=== PATIENT | male | born 1940 | race Caucasian/White ===

== ENCOUNTER 2016-10-13 09:57 | Emergency (ER) | payer MEDICARE, BC ==
[2016-10-13] MEDS ORDERED: NS 0.9% 1000 ML* 1,000 ML IV ONE (10:52)
[2016-10-13 11:00] LABS: Hematocrit 46 % (42-52); Hemoglobin 15.2 g/dl (14.0-18.0); Mean Corpuscular HGB Conc 33 g/dl (31-36); Mean Corpuscular Hemoglobin 30 pg (27-31); Mean Corpuscular Volume 91 fL (80-94); Mean Platelet Volume 9 um3 (7.4-10.4); Red Blood Count 5.01 10^6/ul (4.0-5.4); Red Cell Distribution Width 13 % (10.5-15); White Blood Count 20.1 10^3/ul (3.5-10.8)
[2016-10-13 11:12] LABS: Albumin 4.2 g/dL (3.2-5.2); BUN/Creatinine Ratio 18.6 (8-20); Calcium 9.3 mg/dL (8.6-10.3); EGFR African American 97.3 (>60); EGFR Non-African American 75.7 (>60); Globulin 3.1 g/dL (2-4); Potassium 3.6 mmol/L (3.5-5.0); Total Bilirubin 0.9 mg/dL (0.2-1.0); Total Protein 7.3 g/dL (6.4-8.9)
--- NOTE | 2016-10-13 11:23 | RAD ---
HISTORY: Trauma, headache and dizziness, confusion COMPARISONS: None TECHNIQUE: Multiple contiguous axial CT scans were obtained of the head without intravenous contrast. FINDINGS: HEMORRHAGE/INFARCT: There are bilateral frontal parenchymal parenchymal hematomas, left greater than right measuring approximate 4.8 x 2.6 cm transversely on the left and 2 x 2 cm transversely on the right. There is a contusion of the left cerebellar hemisphere measuring 2.5 cm. There is no acute infarct. MASSES/SHIFT: There is no shift. EXTRA-AXIAL SPACES: There is a small amount of subarachnoid hemorrhage along the anterior parietal lobes bilaterally. There is a small falcine subdural hematoma measuring 0.3 cm in thickness. SULCI AND VENTRICLES: The sulci and ventricles are normal in size and position for the patient's stated age. CEREBRUM: As noted above, there are bilateral frontal parenchymal hematoma with associated vasogenic edema. BRAINSTEM: There are no focal parenchymal abnormalities. CEREBELLUM: As noted above, there is a left cerebellar parenchymal hematoma. VESSELS: The vessels are grossly normal. PARANASAL SINUSES: The paranasal sinuses are clear. ORBITS: The orbits are unremarkable. BONES AND SOFT TISSUE: No bone or soft tissue abnormalities are noted. OTHER: None IMPRESSION: 1. LARGE BILATERAL FRONTAL PARENCHYMAL HEMATOMAS, LEFT GREATER THAN RIGHT, WITH A LEFT CEREBELLAR PARENCHYMAL HEMATOMA. THERE IS NO SHIFT. 2. THERE IS A SMALL AMOUNT OF SUBARACHNOID AND SUBDURAL HEMORRHAGE. 3. PRELIMINARY FINDINGS WERE DISCUSSED WITH DR. BURNETT IN THE EMERGENCY DEPARTMENT AT APPROXIMATELY 1117 A.M. ON OCTOBER 13, 2016.
[2016-10-13 11:37] VITALS: BP 150/63
--- NOTE | 2016-10-13 11:45 | ED ---
Orion Amato Benjamin, scribed for Fer Muñoz MD on 10/13/16 at 1057 . Dizziness - HPI Summary HPI Summary: 75yo male who had a mechanical fall yesterday afternoon from tripping off a car bumper. He denies head trauma. Per family, pt reported dizziness prior to the episode and had vomiting and bowel incontinence after the fall. Pt then vomited throughout the day multiple times, altogether about 15-20 times. Pt had 1 week- old roast beef yesterday prior to the episode. Per son, pt had a brief moment of confusion enroute to the hospital. - History Of Current Complaint Chief Complaint: EDDizziness Stated Complaint: DIZZY/LIGHTHEADED Time Seen by Provider: 10/13/16 10:38 Hx Obtained From: Patient Onset/Duration: Resolved Timing: Intermittent Episode Lasting Severity Initially: Mild Severity Currently: None Character: Dizzy Aggravating Factor(s): Nothing Alleviating Factor(s): Nothing Associated Signs And Symptoms: Positive: Vomiting - x15-20 - Allergies/Home Medications Allergies/Adverse Reactions: Allergies Allergy/AdvReac Type Severity Reaction Status Date / Time Proton Pump Inhibitors Allergy Unknown Verified 10/13/16 10:55 Reaction Details Sulfa Antibiotics Allergy Unknown Verified 10/13/16 10:55 Reaction Details Home Medications: Home Medications Amlodipine Besylate-Benazepril [Lotrel 5-10 mg] 5 - 10 mg PO BEDTIME 10/13/16 [ History Confirmed 10/13/16] Aspirin [Aspirin Enteric Coated Ad] 81 mg PO BEDTIME 10/13/16 [History Confirmed 10/13/16] Atorvastatin* [Lipitor 10 MG*] 10 mg PO BEDTIME 10/13/16 [History Confirmed 07/20] Finasteride TAB* [Proscar TAB*] 5 mg PO BEDTIME 10/13/16 [History Confirmed 07/20] Lactobacillus Acidophilu (GG)* [Culturelle*] 1 cap PO BEDTIME 10/13/16 [History Confirmed 10/13/16] Metoprolol Succinate [Toprol Xl] 25 mg PO BEDTIME 10/13/16 [History Confirmed ] Ranitidine HCl 150 mg PO BEDTIME 10/13/16 [History Confirmed 10/13/16] Sertraline* [Zoloft*] 25 mg PO BEDTIME 10/13/16 [History Confirmed 10/13/16] Tamsulosin CAP* [Flomax CAP*] 0.4 mg PO BEDTIME 10/13/16 [History Confirmed 07/20] PMH/Surg Hx/FS Hx/Imm Hx Previously Healthy: Yes Infectious Disease History: No Infectious Disease History: Denies: Traveled Outside the [place] in Last 30 Days - Social History Alcohol Use: None Substance Use Type: Reports: None Smoking Status (MU): Former Smoker Review of Systems Constitutional: Negative Eyes: Negative ENT: Negative Cardiovascular: Negative Respiratory: Negative Positive: Vomiting Genitourinary: Negative Musculoskeletal: Negative Skin: Negative Neurological: Other - dizziness Psychological: Normal All Other Systems Reviewed And Are Negative: Yes Physical Exam Triage Information Reviewed: Yes Vital Signs On Initial Exam: Initial Vitals Temp Pulse Resp BP Pulse Ox 98.4 F 98 16 158/84 100 10/13/16 10:18 10/13/16 10:18 10/13/16 10:18 10/13/16 10:18 10/13/16 10:18 Vital Signs Reviewed: Yes Appearance: Positive: Well-Appearing, No Pain Distress, Well-Nourished Skin: Positive: Warm, Skin Color Reflects Adequate Perfusion, Dry Head/Face: Positive: Normal Head/Face Inspection Eyes: Positive: Normal ENT: Positive: Normal ENT inspection Neck: Positive: Supple, Nontender Cardiovascular: Positive: RRR Abdomen Description: Positive: Nontender, Soft Bowel Sounds: Positive: Present Musculoskeletal: Positive: Normal Neurological: Positive: Sensory/Motor Intact, Alert, Oriented to Person Place, Time, CN Intact II-III, Other - Prefer eyes close but opens on command answers questions promptly. Slight dysmetria on the RUE Psychiatric: Positive: Affect/Mood Appropriate - [place] Coma Scale Coma Scale Total: 15 Diagnostics - Vital Signs Vital Signs Temp Pulse Resp BP Pulse Ox 10/13/16 10:18 98.4 F 98 16 158/84 100 - Laboratory Lab Results: Lab Results 10/13/16 10/13/16 10/13/16 Range/Units 10:30 10:30 10:30 WBC 20.1 H (3.5-10.8) 10^3/ul RBC 5.01 (4.0-5.4) 10^6/ul Hgb 15.2 (14.0-18.0) g/dl Hct 46 (42-52) % MCV 91 (80-94) fL MCH 30 (27-31) pg MCHC 33 (31-36) g/dl RDW 13 (10.5-15) % Plt Count 257 (150-450) 10^3/ul MPV 9 (7.4-10.4) um3 Neut % (Auto) 90.9 H (38-83) % Lymph % (Auto) 4.4 L (25-47) % Blanco % (Auto) 4.4 (1-9) % Eos % (Auto) 0 (0-6) % Baso % (Auto) 0.3 (0-2) % Absolute Neuts (auto) 18.3 H (1.5-7.7) 10^3/ul Absolute Lymphs (auto) 0.9 L (1.0-4.8) 10^3/ul Absolute Monos (auto) 0.9 H (0-0.8) 10^3/ul Absolute Eos (auto) 0 (0-0.6) 10^3/ul Absolute Basos (auto) 0.1 (0-0.2) 10^3/ul Absolute Nucleated RBC 0 10^3/ul Nucleated RBC % 0 INR (Anticoag Therapy) (0.89-1.11) Sodium 138 (133-145) mmol/L Potassium 3.6 (3.5-5.0) mmol/L Chloride 102 (101-111) mmol/L Carbon Dioxide 25 (22-32) mmol/L Anion Gap 11 (2-11) mmol/L BUN 18 (6-24) mg/dL Creatinine 0.97 (0.67-1.17) mg/dL Est GFR ( Amer) 97.3 (>60) Est GFR (Non-Af Amer) 75.7 (>60) BUN/Creatinine Ratio 18.6 (8-20) Glucose 196 H (70-100) mg/dL Lactic Acid 2.0 (0.5-2.0) mmol/L Calcium 9.3 (8.6-10.3) mg/dL Total Bilirubin 0.90 (0.2-1.0) mg/dL AST 15 (13-39) U/L ALT 16 (7-52) U/L Alkaline Phosphatase 67 (34-104) U/L Troponin I 0.00 (<0.04) ng/mL Total Protein 7.3 (6.4-8.9) g/dL Albumin 4.2 (3.2-5.2) g/dL Globulin 3.1 (2-4) g/dL Albumin/Globulin Ratio 1.4 (1-3) TSH Pending 10/13/16 Range/Units 10:30 WBC (3.5-10.8) 10^3/ul RBC (4.0-5.4) 10^6/ul Hgb (14.0-18.0) g/dl Hct (42-52) % MCV (80-94) fL MCH (27-31) pg MCHC (31-36) g/dl RDW (10.5-15) % Plt Count (150-450) 10^3/ul MPV (7.4-10.4) um3 Neut % (Auto) (38-83) % Lymph % (Auto) (25-47) % Blanco % (Auto) (1-9) % Eos % (Auto) (0-6) % Baso % (Auto) (0-2) % Absolute Neuts (auto) (1.5-7.7) 10^3/ul Absolute Lymphs (auto) (1.0-4.8) 10^3/ul Absolute Monos (auto) (0-0.8) 10^3/ul Absolute Eos (auto) (0-0.6) 10^3/ul Absolute Basos (auto) (0-0.2) 10^3/ul Absolute Nucleated RBC 10^3/ul Nucleated RBC % INR (Anticoag Therapy) 0.99 (0.89-1.11) Sodium (133-145) mmol/L Potassium (3.5-5.0) mmol/L Chloride (101-111) mmol/L Carbon Dioxide (22-32) mmol/L Anion Gap (2-11) mmol/L BUN (6-24) mg/dL Creatinine (0.67-1.17) mg/dL Est GFR ( Amer) (>60) Est GFR (Non-Af Amer) (>60) BUN/Creatinine Ratio (8-20) Glucose (70-100) mg/dL Lactic Acid (0.5-2.0) mmol/L Calcium (8.6-10.3) mg/dL Total Bilirubin (0.2-1.0) mg/dL AST (13-39) U/L ALT (7-52) U/L Alkaline Phosphatase (34-104) U/L Troponin I (<0.04) ng/mL Total Protein (6.4-8.9) g/dL Albumin (3.2-5.2) g/dL Globulin (2-4) g/dL Albumin/Globulin Ratio (1-3) TSH Result Diagrams: 10/13/16 10:30 10/13/16 10:30 Lab Statement: Any lab studies that have been ordered have been reviewed, and results considered in the medical decision making process. - CT CT Brain WO CT Interpretation: Positive (See Comments) - IMPRESSION: 1. LARGE BILATERAL FRONTAL PARENCHYMAL HEMATOMAS, LEFT GREATER THAN RIGHT, WITH A LEFT CEREBELLAR PARENCHYMAL HEMATOMA. THERE IS NO SHIFT. 2. THERE IS A SMALL AMOUNT OF SUBARACHNOID AND SUBDURAL HEMORRHAGE. 3. PRELIMINARY FINDINGS WERE DISCUSSED WITH DR. BURNETT IN THE EMERGENCY DEPARTMENT AT APPROXIMATELY 1117 A.M. ON OCTOBER 13, 2016. CT Interpretation Completed By: Radiologist Jordan Course/Dx - Course Course Of Treatment: Mr. Almaguer presented with about 20 hours of symptoms. He was found to have mild confusion, a relatively nonfocal neuro exam and quite a bit of blood on CT scan. It is unclear whether the blood preceded the fall or vice versa. He will be transferred to [facility] as we have no neurosurgeon three dimensional map modeler today. He is going by ground as it is snowing and they're not flying. - Diagnoses Provider Diagnoses: Intracerebral hemorrhage - Provider Notifications Discussed Care Of Patient with: [facility] @1124. - Critical Care Time Critical Care Time: 30-74 min Discharge - Discharge Plan Condition: Stable Disposition: TRANS HIGHER LVL OF CARE FAC The documentation as recorded by the Orion gee Benjamin accurately reflects the service I personally performed and the decisions made by me, Fer Muñoz MD.
[2016-10-13 12:20] LABS: TSH (Thyroid Stimulating Horm) 0.53 mcIU/mL (0.34-5.60)
== END 2016-10-13 11:35 | disposition short-term general hospital (02) ==
LOC: ED 09:57
DX: I61.4 Nontraumatic intracerebral hemorrhage in cerebellum (principal); R42 Dizziness and giddiness
CPT/HCPCS: 36415; 70450; 80053; 83605; 84443; 84484; 85025; 85610; 93005; 96360; 99283

== ENCOUNTER → 2019-04-20 12:22 | Emergency (ER) | payer MEDICARE, BC ==
[~2019-04-20 12:22] MED LIST: Lidocaine 2% JELLY* 10 ML JELLY TOPICAL ONE; Lidocaine 2% JELLY* 6 ML JELLY TOPICAL ONE; Lidocaine 2% w/ EPI 1:200,000* 20 ML VIAL ONE; cefTRIAXone(*) 2 GM in NS 0.9% 50 ML* 50 ML IVPB ONE
--- NOTE | 2019-04-20 13:33 | ED ---
GI/ HPI - HPI Summary HPI Summary: This pt is a 78 y/o male presenting to [facility] c/o urinary retention for the past 15 hours. Pt reports he has an enlarged prostate and has been unable to void. Additionally he notes he has suprapubic pain. Pt was on medications for his enlarged prostate but he stopped taking these medications including Tamsulosin last week because it made him dizzy. Pt has had urinary retention in the past, notes it happens every 6 weeks, but has never needed a catheter. He states his urinary retention resolves on its own. His urologist is Dr. Garcia in [place]. reports pt has not had any of his medications today, including Lisinopril. - History of Current Complaint Chief Complaint: EDUrogenitalProblems Time Seen by Provider: 04/20/19 13:06 Stated Complaint: UNABLE TO URINATE IN 15 HOURS PER PATIENT Hx Obtained From: Patient Onset/Duration: Started Hours Ago, Still Present Timing: Lasting Hours Current Severity: Moderate Pain Intensity: 6 Location of Pain: Suprapubic Associated Signs and Symptoms: Positive: Abdominal Pain. Negative: Nausea, Vomiting, Fever, Chills Aggravating Factor(s): Nothing Alleviating Factor(s): Nothing - Allergy/Home Medications Allergies/Adverse Reactions: Allergies Allergy/AdvReac Type Severity Reaction Status Date / Time Proton Pump Inhibitors Allergy See Comment Verified 04/20/19 12:29 Sulfa (Sulfonamide Allergy See Comment Verified 04/20/19 12:29 Antibiotics) PMH/Surg Hx/FS Hx/Imm Hx Cardiovascular History: Reports: Hx Hypercholesterolemia, Hx Hypertension GI History: Reports: Hx Gastroesophageal Reflux Disease History: Reports: Hx Benign Prostatic Hyperplasia Neurological History: Reports: 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 Tonsillectomy. Cholecystectomy. Prostate biopsy x2. Cystoscopy Infectious Disease History: No Infectious Disease History: Denies: Traveled Outside the [place] in Last 30 Days - Family History Known Family History: Positive: Cardiac Disease - Father with [place] in late 50s Family History: father and mother with [place]. - Social History Alcohol Use: None Substance Use Type: Reports: None Smoking Status (MU): Former Smoker Review of Systems Negative: Fever Positive: Abdominal Pain Genitourinary: Other - POSITIVE: urinary retention All Other Systems Reviewed And Are Negative: Yes Physical Exam - Summary Physical Exam Summary: Appearance: Well-appearing, Well-nourished, lying in bed comfortably Skin: Warm, dry, no obvious rash Eyes: sclera anicteric, no conjunctival pallor ENT: mucous membranes moist, pharynx appears normal Neck: Supple, nontender Respiratory: Clear to auscultation, no signs of respiratory distress Cardiovascular: Normal S1, S2. No murmurs. Normal distal pulses in tibial and radial bilaterally. Abdomen: Soft, nontender, normal active bowel sounds present Musculoskeletal: Normal, Strength/ROM Intact Neurological: A&Ox3, awake and alert, mentation is normal, speech is fluent and appropriate Psychiatric: affect is normal, does not appear anxious or depressed Triage Information Reviewed: Yes Vital Signs On Initial Exam: Initial Vitals Temp Pulse Resp BP Pulse Ox 98.2 F 111 20 131/94 95 04/20/19 12:25 04/20/19 12:25 04/20/19 12:25 04/20/19 12:25 04/20/19 12:25 Vital Signs Reviewed: Yes Diagnostics - Vital Signs Vital Signs Temp Pulse Resp BP Pulse Ox 04/20/19 12:25 98.2 F 111 20 131/94 95 - Laboratory Lab Statement: Any lab studies that have been ordered have been reviewed, and results considered in the medical decision making process. Re-Evaluation - Re-Evaluation First Eval Re-Evaluation Time: 14:55 Comment: Dr. Gaytan, urologist, at bedside to place catheter. GIGU Course/Dx - Course Assessment/Plan: Pt is a 78 y/o male presenting to [facility] c/o urinary retention for the past 15 hours with suprapubic pain. Pt reports he has an enlarged prostate and has been unable to void. Pt was on medications for his enlarged prostate but he stopped taking these medications including Tamsulosin last week because it made him dizzy. Discussed the case with Dr. Gaytan, urologist, who came and placed a catheter. Patient is to follow up with Dr. Gaytan on 04/25/19. Pt was given a prescription for Alfuzosin. - Diagnoses Provider Diagnoses: Urinary retention - Physician Notifications Discussed Care Of Patient With: Vargas Gaytan Time Discussed With Above Provider: 14:02 Instructed by Provider To: Other - Discussed with Dr. Gaytan, urologist, who will come see pt in ED. Discharge - Sign-Out/Discharge Documenting (check all that apply): Patient Departure - Discharge home Patient Received Moderate/Deep Sedation with Procedure: No - Discharge Plan Condition: Improved Disposition: HOME Prescriptions: Alfuzosin HCl [Uroxatral] 10 mg PO DAILY #30 tab.er.24h Patient Education Materials: Diez Catheter Placement and Care (ED) Referrals: Vargas Gaytan MD [Medical Doctor] - Additional Instructions: Call Dr. Gaytan's office for fever above 101 or if the catheter stops draining. Followup with him as scheduled on Wednesday at 3 pm - Attestation Statements Document Initiated by Scribe: Yes Documenting Scribe: Nory Carr Provider For Whom Scribe is Documenting (Include Credential): Fer Dawn MD Scribe Attestation: Nory Amato, scribed for Fer Dawn MD on 04/20/19 at 1625. Status of Scribe Document: Ready
[2019-04-20 16:28] VITALS: BP 143/79
--- NOTE | 2019-04-20 17:58 | CONS ---
CC: Dr. Reggie Harvey * CONSULTATION NOTE: DATE OF CONSULT: 04/20/19 FINAL DIAGNOSIS: Urinary retention. PROCEDURE: Percutaneous placement of suprapubic catheter (Farrah catheter, 14- gauge). HISTORY OF PRESENT ILLNESS: Mr. Almaguer is a 78-year-old white male, who has long history of a bladder outlet obstruction and who had been maintained on tamsulosin. He stopped the tamsulosin about 2 weeks ago because of dizziness. He has been having increasing obstructive voiding symptoms with slow stream, hesitancy, and feeling of incomplete bladder emptying. He has nocturia only once and the frequency about 5 to 6 times. He presented to the emergency room earlier today because of urinary retention of about 12 hours' duration. There was no associated fever, chills, or gross hematuria. He did not have any flank pain or any problem with constipation. Several attempts by the emergency room staff to pass a Diez catheter were unsuccessful and Urology consultation was obtained. Past history is relevant for an elevated PSA for which he had undergone 2 prostate biopsies, the last one being in 2007. He does not have recollection of his PSAs, which have been done through Dr. Harvey, his primary care physician. The patient had a bladder ultrasound, which showed distended bladder. I attempted placement of several urethral catheters including a 14-Hungarian coude catheter and there was resistance at the posterior bladder neck. There was also associated urethral bleeding. The patient was given 1 g of ceftriaxone IV. Decision was made to place a Farrah suprapubic catheter. His suprapubic area was prepped with Betadine and draped. A total of 10 cc of 0.5% Xylocaine without epinephrine was used to infiltrate the suprapubic area. The bladder was located using the spinal needle. The Farrah catheter was placed just off the midline to the left and a total of about 600 cc of concentrated lightly bloody urine was drained. The patient felt significant relief. PLAN: The plan is to keep the suprapubic catheter in place for the next 4 or 5 days. The patient will be started on alfuzosin 10 mg daily as a substitute to the tamsulosin, which was giving him dizziness. He will be seen in the office next week where he will undergo a cystoscopy and placement of a Diez catheter and removal of the suprapubic catheter. He will also need to be checked regarding the elevated PSA. A full urological exam including a rectal exam will be done at his visit to the office. [id number]/[facility] #: [id number] LONI
== END | disposition home or self-care (01) ==
LOC: ED 12:22
DX: N40.1 Benign prostatic hyperplasia with lower urinary tract symptoms (principal); R33.8 Other retention of urine; E78.00 Pure hypercholesterolemia, unspecified; I10 Essential (primary) hypertension; K21.9 Gastro-esophageal reflux disease without esophagitis; Z87.891 Personal history of nicotine dependence; Z88.2 Allergy status to sulfonamides; Z88.8 Allergy status to other drugs, medicaments and biological substances; Z79.899 Other long term (current) drug therapy
CPT/HCPCS: 51701; 96365; 99282; A9270-GY; J0696